=== PATIENT | male | born 1985 | race Caucasian/White ===

== ENCOUNTER 2024-09-11 23:08 | Emergency (ER) | payer BC, SELFPAY ==
--- NOTE | ~2024-09-11 | XR_ITS ---
EXAMINATION: XR chest 1V portable DATE: 09/12/2024 01:02 INDICATION: Palpitations. Chest pain. TECHNIQUE: A single frontal view of the chest was obtained. COMPARISON: None. FINDINGS: There is mild atelectasis in left lower lung zone. No pleural effusion or pneumothorax. The heart size is normal. IMPRESSION: 1. Mild atelectasis in left lower lung zone. Reviewed, dictated and finalized at location A. D SPLATTER ANALYST
--- NOTE | 2024-09-11 23:20 | ECG_ITS ---
Test Date: 2024-09-11 23:28:48 Measurements Intervals [place] Rate: 128 P: 49 DE: 172 QRS: 36 QRSD: 99 T: 54 QT: 334 QTc: 488 Interpretive Statements SINUS TACHYCARDIA NONSPECIFIC T-WAVE ABNORMALITY ABNORMAL RHYTHM ECG No previous ECG available for comparison Electronically Signed On 09-12-2024 14:46:03 DUTY ENGINEER by Juan Ramon Packer M.D.
[2024-09-11 23:21] VITALS: BP 139/90; PULSE 131; RESP 24; TEMP 36.6; O2SAT 100
--- NOTE | 2024-09-12 00:36 | ED_ITS ---
HPI - Arrhythmia/Palpitations General Chief Complaint: Arrhythmia/Palpitations Stated Complaint: palpitations/ dizzy/ heavy extremities Time Seen by Provider: 09/12/24 00:35 Source: patient Mode of arrival: EMS Limitations: no limitations History of Present Illness HPI narrative: this is a 38-year-old male With history of depression and anxiety who presents to the ED for chief complaint of palpitations onset just prior to arrival. patient states that he was having a typical night and was just sitting on the couch when this started. Reports that he was drinking a THC [place] which he has had before and is about 20 mg of THC. He reports that out of no where he started to feel lightheaded and having palpitations with bilateral upper and lower extremity tingling. Reports feeling clammy and dizzy. Reports that this lasted for greater than 20 minutes which would be the worst panic attack he experience so he called EMS. He does have family history of cardiac issues and wants to make sure that is not his heart. Related Data Allergies Allergy/AdvReac Type Severity Reaction Status Date / Time Penicillins Allergy Verified 11/20/13 15:44 Review of Systems Review of Systems: All systems as dictated in HPI Exam Narrative: GENERAL: Anxious appearing but no acute distress. HEAD: Normocephalic, atraumatic. EYES: PERRLA and EOMI. ENT: Nares clear, no rhinorrhea or epistaxis. Mucous membranes moist. Oropharynx without tonsillar hypertrophy exudate or other lesions. NECK: Supple. No adenopathy or masses. CHEST: No respiratory distress. Clear to auscultation. No wheezes rales or rhonchi HEART: Regular rate and rhythm. No murmur heard. Normal peripheral pulses. ABDOMEN: Soft, nontender, nondistended, normal active bowel sounds. MSK: Normal range of motion. No edema. SKIN: Warm, dry, no rash. NEURO: Alert and oriented x4. No focal deficits. PSYCH: Normal mood and affect. Course Vital Signs Vital signs: Vital Signs Temperature 97.8 F 09/11/24 23:21 Pulse Rate 131 H 09/11/24 23:21 Respiratory Rate 24 H 09/11/24 23:21 Blood Pressure 139/90 09/11/24 23:21 Pulse Oximetry 100 09/11/24 23:21 Oxygen Delivery Room Air 09/11/24 23:21 Temperature 97.8 F 09/11/24 23:21 Pulse Rate 131 H 09/11/24 23:21 Respiratory Rate 24 H 09/11/24 23:21 Blood Pressure 139/90 09/11/24 23:21 Pulse Oximetry 100 09/11/24 23:21 Oxygen Delivery Room Air 09/11/24 23:21 MDM - Arrhythmia/Palpitations MDM Narrative Medical decision making narrative: This is a 38-year-old male presents to ED EMS for palpitations and chest pain. Vitals Are showing tachycardia and tachypnea but otherwise normal. Exam shows patient is anxious but not toxic appearing. Lab work is grossly unremarkable. EKG shows sinus tachycardia preliminary chest x-ray read is unremarkable. Presentation consistent with panic attack. Patient was given 2 rounds of At mario 0.5 with good relief of symptoms. Patient will be discharged in stable condition. Supportive measures discussed and return precautions given. Patient is understanding and agreeable with plan for discharge with PCP follow-up. Differential Diagnosis Differential diagnosis: Likely palpitations, anxiety, sinus tachycardia, artial fibrillation, ventricular premature beats and supraventricular tachycardia Lab Data 09/12/24 01:02 09/12/24 01:02 Labs: Lab Results 09/12/24 Range/Units 01:02 WBC 8.2 (4.5-10.0) K/mm3 RBC 5.07 (4.6-6.20) M/mm3 Hgb 14.8 (14.0-18.0) g/dL Hct 42.9 (42.0-52.0) % MCV 84.6 (80-100) fl MCH 29.2 (26-34) pg MCHC 34.5 (32-36) g/dl RDW 12.4 (11.5-14.5) % Plt Count 294 (150-375) k/mm3 MPV 9.3 (7.4-10.4) fl Immature Gran % (Auto) 0.1 (0-0.5) % Neut % (Auto) 78.1 H (45.5-73.1) % Lymph % (Auto) 15.5 L (18.3-44.2) % [place] % (Auto) 5.2 (2.6-8.5) % Eos % (Auto) 0.7 (0-4.4) % Baso % (Auto) 0.4 (0.2-1.2) % Lymph # (Auto) 1.27 (0.9-3.2) K/mm3 [place] # (Auto) 0.4 (0.1-0.6) K/mm3 Eos # (Auto) 0.1 (0-0.3) K/mm3 Baso # (Auto) 0.0 (0.0-0.1) K/mm3 Abs Immat Gran (auto) 0.01 (0.00-0.031) K/mm3 Absolute Neuts (auto) 6.4 (1.3-6.7) K/mm3 Absolute Nucleated RBC 0.000 (0.0-0.012) K/mm3 Nucleated RBC % 0.0 (0.0-0.2) % Sodium 136 L (137-145) mmol/L Potassium 3.8 (3.4-5.0) mmol/L Chloride 107 (98-107) mmol/L Carbon Dioxide 23 (22-30) mmol/L Anion Gap 6 (4-12) mmol/L BUN 15 (9-20) mg/dL Creatinine 1.20 (0.7-1.3) mg/dL Estim Creat Clear Calc 80 ml/min Estimated GFR > 60 (59 - ) Glucose 196 H (65-110) mg/dL Calcium 8.7 (8.4-10.2) mg/dL Total Bilirubin 0.4 (0.2-1.3) mg/dL AST 24 (17-59) U/L ALT 27 (6-50) U/L Alkaline Phosphatase 66 (38-126) U/L Troponin I < 0.012 (0.000-0.034) ng/mL Total Protein 7.0 (6.3-8.2) g/dL Albumin 4.5 (3.5-5.1) g/dL Discharge Plan Discharge Clinical Impression: Panic attack Patient Disposition: Home, Self-Care Condition: Stable Instructions: Antibiotic Form Additional Instructions: Exam and imaging today are reassuring. This was most likely a manifestation of panic attack. Please take your medications as prescribed at home follow-up w [facility] PCP on this issue. If you have any new or worsening symptoms please return to the ER for further evaluation. Follow-up/Referrals: Sage*,Luiz Swenson MD [Primary Care Provider] - Time of Disposition: 02:48 Quality HEART score for chest pain patients History: slightly suspicious ECG: normal Age: < or = to 45 years Risk factors: no risk factors known Troponin: < or = to 1x normal limit Heart score: 0
[2024-09-12] MEDS: LORazepam INJ (*CRX) 2 MG/ML VIAL 0.5 MG IV PUSH ×2 (00:55→02:55)
[2024-09-12] MEDS: SODIUM CHLORIDE 0.9% IV 1,000 ML 999 ML IV CONT (00:55)
[2024-09-12 01:18] LABS: Basophils Percent Auto 0.4 % (0.2-1.2); Eosinophils Absolute Auto 0.1 K/mm3 (0-0.3); Eosinophils Percent Auto 0.7 % (0-4.4); Hematocrit 42.9 % (42.0-52.0); Hemoglobin 14.8 g/dL (14.0-18.0); Immature Granulocyte Absolute 0.01 K/mm3 (0.00-0.031); Immature Granulocyte Percent A 0.1 % (0-0.5); Lymphocytes Absolute Auto 1.27 K/mm3 (0.9-3.2); Lymphocytes Percent Auto 15.5 % (18.3-44.2); Mean Corpuscular HGB Conc 34.5 g/dl (32-36); Mean Corpuscular Hemoglobin 29.2 pg (26-34); Mean Corpuscular Volume 84.6 fl (80-100); Mean Platelet Volume 9.3 fl (7.4-10.4); Monocytes Absolute Auto 0.4 K/mm3 (0.1-0.6); Monocytes Percent Auto 5.2 % (2.6-8.5); Neutrophils Absolute Auto 6.4 K/mm3 (1.3-6.7); Neutrophils Percent Auto 78.1 % (45.5-73.1); Platelet Count Result 294 k/mm3 (150-375); Red Blood Count 5.07 M/mm3 (4.6-6.20); Red Cell Distribution Width 12.4 % (11.5-14.5); White Blood Count 8.2 K/mm3 (4.5-10.0)
[2024-09-12 01:28] LABS: Alanine Aminotransferase 27 U/L (6-50); Albumin Level 4.5 g/dL (3.5-5.1); Alkaline Phosphatase 66 U/L (38-126); Anion Gap 6 mmol/L (4-12); Aspartate Amino Transferase 24 U/L (17-59); Bilirubin,Total 0.4 mg/dL (0.2-1.3); Blood Urea Nitrogen 15 mg/dL (9-20); Calcium 8.7 mg/dL (8.4-10.2); Carbon Dioxide 23 mmol/L (22-30); Chloride 107 mmol/L (98-107); Estimated CRCL calculation 80 ml/min; Estimated Glomerular Filt Rate > 60; Glucose 196 mg/dL (65-110); Potassium 3.8 mmol/L (3.4-5.0); Sodium 136 mmol/L (137-145)
[2024-09-12 01:46] LABS: Troponin I < 0.012 ng/mL (0.000-0.034)
[2024-09-12 02:31] LABS: INR 0.9; Prothrombin Time 12.9 Seconds (11.1-14.7)
[2024-09-12 02:32] LABS: Partial Thromboplastin Time 24.4 Seconds (22.3-36.8)
[2024-09-12 02:36] LABS: D Dimer < 0.27 ug/mL (<0.48)
== END 2024-09-12 03:22 | disposition home or self-care (01) ==
PROVIDERS: Emergency Provider Physician Assistant; PCP Family Medicine
DX: F41.0 Panic disorder [episodic paroxysmal anxiety] (principal)
CPT/HCPCS: 36415; 71045; 80053; 84484; 85025; 85380; 85610; 85730; 93005; 96361; 96374; 96375; 99284; J2060; J7030